=== PATIENT | female | born 1955 | race Caucasian/White ===

== ENCOUNTER 2016-10-23 07:14 | Emergency (ER) | payer BC ==
[2016-10-23 07:44] VITALS: BP 151/71
--- NOTE | 2016-10-23 08:14 | UC ---
Truncal Trauma HPI - HPI Summary HPI Summary: right mid ribs pain x 4 days had chiropractor adjustment 4 days ago , sudden onset pain to her right mid ribs pain is 7 out of 10 , sharp , no radiation , increase pain with movement , touch and deep breathing improves with rest. - History Of Current Complaint Chief Complaint: UCGeneralIllness Stated Complaint: RIB PAIN Time Seen by Provider: 10/23/16 07:49 Hx Obtained From: Patient Onset/Duration: Sudden Onset, Lasting Days - 4, Still Present Severity Initially: Moderate Severity Currently: Moderate Mechanism Of Injury: Unknown - chiro adjustment Aggravating Factor(s): Movement, Deep Breathing Alleviating factor(s): Rest Associated Signs And Symptoms: Negative: SOB, Chest Pain, Cough, Hematuria, Abdominal Pain, Fever, Nausea, Vomiting - Allergies/Home Medications Allergies/Adverse Reactions: Allergies Allergy/AdvReac Type Severity Reaction Status Date / Time No Known Allergies Allergy Verified 10/23/16 07:21 PMH/Surg Hx/FS Hx/Imm Hx Cardiovascular History: Hypertension - Surgical History Surgical History: None - Family History Known Family History: Negative: Diabetes - Social History Alcohol Use: Occasionally Substance Use Type: None Smoking Status (MU): Never Smoked Tobacco Review of Systems Constitutional: Negative Skin: Negative Eyes: Negative ENT: Negative Respiratory: Negative All Other Systems Reviewed And Are Negative: Yes Physical Exam Triage Information Reviewed: Yes Appearance: Well-Appearing, No Pain Distress, Well-Nourished Vital Signs: Initial Vital Signs Temp 99.0 F 10/23/16 07:21 Pulse 65 10/23/16 07:21 Resp 16 10/23/16 07:21 BP 151/71 10/23/16 07:21 Pulse Ox 100 10/23/16 07:21 Vital Signs Reviewed: Yes Eyes: Positive: Conjunctiva Clear ENT: Positive: Normal ENT inspection, Hearing grossly normal, Pharynx normal Neck: Positive: Supple Respiratory: Positive: Chest non-tender, Lungs clear, Normal breath sounds, No respiratory distress, No accessory muscle use, Other: - tenderness right 6/7/8 lateral ribs. Negative: Accessory muscle use, Crackles, Rhonchi Cardiovascular: Positive: RRR, No Murmur, Pulses Normal Abdomen Description: Positive: Nontender, No Organomegaly, Soft. Negative: CVA Tenderness (R), CVA Tenderness (L) Bowel Sounds: Positive: Present Musculoskeletal Exam: Normal Musculoskeletal: Positive: Strength Intact, ROM Intact, No Edema Neurological: Positive: Alert Skin Exam: Normal Truncal Trauma Course/Dx - Differential Dx/Diagnosis Provider Diagnoses: strain right ribs Discharge - Discharge Plan Condition: Stable Disposition: HOME Prescriptions: Cyclobenzaprine TAB* [Flexeril 10 MG TAB*] 10 mg PO BID #20 tab Naproxen 500 mg PO BID #20 tab Patient Education Materials: Rib Contusion (ED) Referrals: Yuusf Chandler MD [Primary Care Provider] - 7 Days
--- NOTE | 2016-10-23 09:04 | RAD ---
INDICATION: Pain beneath the right breast 3 days after chiropractic appointment COMPARISON: None. TECHNIQUE: 3 views of the right ribs were obtained. FINDINGS: No fracture or significant focal osseous abnormality is seen. No pneumothorax is apparent. Limited views demonstrate grossly clear lungs. IMPRESSION: No radiographically apparent displaced rib fracture or pneumothorax. If the patient's symptoms persist, follow-up imaging is recommended.
== END 2016-10-23 08:40 | disposition home or self-care (01) ==
LOC: UCEAST 07:14
DX: S29.011A Strain of muscle and tendon of front wall of thorax, initial encounter (principal); X58.XXXA Exposure to other specified factors, initial encounter; Y93.9 Activity, unspecified; Y92.9 Unspecified place or not applicable; I10 Essential (primary) hypertension
CPT/HCPCS: 99212; G0463

== ENCOUNTER 2018-02-16 08:45 | Emergency (ER) | payer BC ==
[2018-02-16 09:01] VITALS: BP 137/80
--- NOTE | 2018-02-16 10:13 | UC ---
Skin Complaint HPI - HPI Summary HPI Summary: Onset of redness and discomfort left lower leg 2 days ago. No fever or drainage from the lesion. Patient wonders if there was a bug bite there initially. - History of Current Complaint Chief Complaint: UCSkin Time Seen by Provider: 02/16/18 09:58 Stated Complaint: SKIN COMPLAINT Hx Obtained From: Patient Onset/Duration: Gradual Onset, Lasting Days, Still Present Timing: Constant Onset Severity: Moderate Current Severity: Moderate Pain Intensity: 3 Pain Scale Used: 0-10 Numeric Location: Discrete - LLE Character: Pain, Redness Aggravating Factor(s): Touch Alleviating Factor(s): Nothing Associated Signs & Symptoms: Positive: Tenderness. Negative: Fever, Drainage, Bruising - Allergy/Home Medications Allergies/Adverse Reactions: Allergies Allergy/AdvReac Type Severity Reaction Status Date / Time No Known Allergies Allergy Verified 02/16/18 09:01 Home Medications: Home Medications Fluconazole 100 MG TAB* [Diflucan 100 MG TAB*] 100 mg PO DAILY 02/16/18 [ History Confirmed 02/16/18] Review of Systems Constitutional: Negative Skin: Rash Respiratory: Negative Cardiovascular: Negative Gastrointestinal: Negative All Other Systems Reviewed And Are Negative: Yes PMH/Surg Hx/FS Hx/Imm Hx Cardiovascular History: Hypertension - Surgical History Surgical History: None - Family History Known Family History: Negative: Hypertension, Diabetes - Social History Alcohol Use: Daily Alcohol Amount: few glasses of wine Substance Use Type: None Smoking Status (MU): Never Smoked Tobacco Physical Exam Triage Information Reviewed: Yes Appearance: Well-Appearing, No Pain Distress, Well-Nourished Vital Signs: Initial Vital Signs Temp 98 F 02/16/18 08:56 Pulse 72 02/16/18 08:56 Resp 16 02/16/18 08:56 BP 137/80 02/16/18 08:56 Pulse Ox 97 02/16/18 08:56 Vital Signs Reviewed: Yes Eyes: Positive: Conjunctiva Clear ENT: Positive: Hearing grossly normal Neck: Positive: Supple Respiratory: Positive: No respiratory distress, No accessory muscle use Cardiovascular: Positive: Pulses Normal Abdomen Description: Positive: Soft Musculoskeletal: Positive: No Edema Neurological: Positive: Alert Psychological: Positive: Age Appropriate Behavior Skin: Positive: Other - 6CM AREA OF ERYTHEMA LEFT LOWER LEG POSTEROMEDIALLY WITH CENTRALLY LOCATED RAISED, FIRM PAPULE. TENDER. NO DRAINAGE. Course/Dx - Diagnoses Provider Diagnoses: CELLULITIS LEFT LOWER LEG Discharge - Sign-Out/Discharge Documenting (check all that apply): Patient Departure All imaging exams completed and their final reports reviewed: No Studies - Discharge Plan Condition: Stable Disposition: HOME Prescriptions: Cephalexin CAP* [Keflex 500 CAP*] 1,000 mg PO BID #28 cap Patient Education Materials: Cellulitis (ED) Referrals: Yusuf Chandler MD [Primary Care Provider] - If Needed Additional Instructions: TAKE THE ANTIBIOTICS FOR THE FULL COURSE. SEEK FOLLOW-UP IF YOU DEVELOP CONTINUED SPREADING REDNESS OF THE SKIN, PERSISTENT PURULENT DRAINAGE, FEVER, INCREASED PAIN OR ANY OTHER CONCERNING SYMPTOMS. - Billing Disposition and Condition Condition: STABLE Disposition: Home
== END 2018-02-16 10:21 | disposition home or self-care (01) ==
LOC: UCEAST 08:45
DX: L03.116 Cellulitis of left lower limb (principal)
CPT/HCPCS: 99212; G0463

== ENCOUNTER 2018-04-11 07:10 | Emergency (ER) | payer BC ==
[2018-04-11 07:23] VITALS: BP 153/115
--- NOTE | 2018-04-11 07:52 | UC ---
Respiratory Complaint HPI - HPI Summary HPI Summary: This is a 63 year old female with a chief complaint of cough beginning 5 days ago. Recently returned from [place]. PAIN INTENSITY NOW: mild around ribs COURSE: continues for 5 days QUALITY: ache LOCATION: outer thorax bilateral MADE WORSE BY: cough RELIEVED BY: head MD Note: vss; 153/115 not taking HTN meds; 99.8 is temp; pulse ox=98; recheck right: 164/98; left: 158/94. Nurses note: pt started with a cough last monday. pt was on a trip and there was a friend that had a cough and a head cold that she ate dinner with a lot. monday night it got worse.pt began to wheeze on monday. - History of Current Complaint Chief Complaint: UCRespiratory Stated Complaint: COUGH RESP ISSUE Time Seen by Provider: 04/11/18 07:21 Pain Intensity: 8 - Allergies/Home Medications Allergies/Adverse Reactions: Allergies Allergy/AdvReac Type Severity Reaction Status Date / Time No Known Allergies Allergy Verified 02/16/18 09:01 Home Medications: Home Medications Dm/Acetaminophen/Doxylamine [Vicks Nyquil Cold-Flu Liquid] 1 liq PO 04/11/18 [ History] PMH/Surg Hx/FS Hx/Imm Hx - Additional Past Medical History Additional PMH: VISIT HISTORY: non contributory MEDICATIONS: not on anti hypertensive medication CHRONIC CONDITIONS: non contributory Family history significant for: -cardiovascular disease: hypertension -DM SMOKING: neg ALCOHOL: weekly 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, 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 Previously Healthy: Yes - Surgical History Surgical History: None - Family History Known Family History: Negative: Hypertension, Diabetes - Social History Alcohol Use: Weekly Alcohol Amount: few glasses of wine Substance Use Type: None Smoking Status (MU): Never Smoked Tobacco Review of Systems All Other Systems Reviewed And Are Negative: Yes Constitutional: Positive: Negative Skin: Positive: Negative Eyes: Positive: Negative ENT: Positive: Negative Respiratory: Positive: Shortness Of Breath - wheezing, Cough - non productive Cardiovascular: Positive: Negative Gastrointestinal: Positive: Negative Genitourinary: Positive: Negative Motor: Positive: Negative Neurovascular: Positive: Negative Musculoskeletal: Positive: Negative Neurological: Positive: Negative Psychological: Positive: Negative Is Patient Immunocompromised?: No Physical Exam - Summary Physical Exam Summary: Appearance: The patient is coughing; mild distress when coughs, and is well- nourished. Eyes: Conjunctiva are clear. Pupils are equal and reactive to light and accommodation. Extra ocular muscle movement is intact. ENT: The hearing is grossly normal, the pharynx is normal, and the TMs are normal. There is no muffled or hoarse voice. No stridor. Neck: The neck is supple and there is no lymphadenopathy. Respiratory: The chest is nontender to palpation and without crepitus. The lungs reveal bilateral rhonchi with extended expiratory phase and some rhonchi. There is no respiratory distress. No rales. Cardiovascular: Heart sounds reveal a regular rate and rhythm. There are no clicks, rubs or murmurs. There are no carotid bruits or thrills. Circulation is grossly intact. Abdomen: The abdomen is soft and nontender. There is no organomegaly. Bowel sounds are present and within normal limits. No point tenderness at McBurneys point. Musculoskeletal: Strength is intact. The patient moves all extremities. Neurological: The patient is alert. Motor and sensory are examination grossly intact. Speech is normal. Psychological: The patient displays age appropriate behavior Skin: Negative for rashes. Triage Information Reviewed: Yes Vital Signs: Initial Vital Signs Temp 99.8 F 04/11/18 07:18 Pulse 93 04/11/18 07:18 Resp 18 04/11/18 07:18 BP 153/115 04/11/18 07:18 Pulse Ox 98 04/11/18 07:18 Diagnostic Evaluation - Laboratory O2 Sat by Pulse Oximetry: 98 Respiratory Course/Dx - Course Course Of Treatment: 63 yo female with 5 day hx of non productive, spasmodic cough. No fever. Chest discomfort with cough. Physical examination reveals rhonchi and extended expiratory phase. My diagnosis is bronchitis with bronchospasm. She has also had recent travel to [place]. We'll start her on Zithromax as well as albuterol, spacer, and dexamethasone. A primary concern is her blood pressure that was rechecked bilaterally and was elevated. She knows to recheck this within a week with her doctor. She is not on antihypertensive medications. MEDICATIONS REVIEWED: Medications have been included in the original chart and reviewed. HTN NOTED: Hypertensive BP reading of X; follow up with PCP within 4 weeks to recheck blood pressure has been recommended to patient. Patient voices understanding. HTN: Hypertensive BP reading (>=140/90); patient referred to PCP within 1 day-1 week for follow- up. Patient voices understanding. - Differential Dx/Diagnosis Differential Diagnosis/HQI/PQRI: Asthma, Bronchitis, Lower Resp Infection, Other - HYPERTENSION Provider Diagnosis: Bronchospasm with bronchitis, acute Discharge - Sign-Out/Discharge Documenting (check all that apply): Patient Departure All imaging exams completed and their final reports reviewed: No Studies - Discharge Plan Condition: Stable Disposition: HOME Prescriptions: Albuterol HFA INHALER* [Ventolin HFA Inhaler*] 1 - 2 puff INH Q4H PRN #1 mdi MDD 8 PRN Reason: Shortness Of Breath Azithromycin TAB* [Zithromax TAB*] 250 mg PO DAILY #6 tab Dexamethasone TAB* [Decadron TAB*] 4 mg PO DAILY #4 tab MDD 2 Inhaler, Assist Devices [Aerochamber Mv] 1 mis XX Q6HR #1 mis MDD 8 Patient Education Materials: Acute Bronchitis (ED), Bronchospasm (ED) Referrals: Yusuf Chandler MD [Primary Care Provider] - Additional Instructions: WE DISCUSSED: PLEASE SEEK CARE AT THE EMERGENCY DEPARTMENT IF SYMPTOMS WORSEN OR IF NEW SYMPTOMS DEVELOP. FOLLOW UP WITH YOUR PRIMARY CARE PHYSICIAN IF CONDITION CONTINUES BEYOND 3 DAYS WITHOUT IMPROVEMENT. YOUR DIAGNOSIS IS: bronchitis with bronchospasm after recent travel to [place] YOUR PRESCRIPTION RECOMMENDATION IS: z judith; albuterol and spacer; dexamethasone OTHER INSTRUCTIONS: Hypertension Discharge Instructions: Your blood pressure reading today was 153/115, indicating HYPERTENSION. Follow- up with your primary care provider within 1 week for blood pressure check and appropriate recommendations and treatment, as needed. FOR PAIN AND/OR SLEEP: For pain: Ibuprofen (Motrin and other brand names) 400-600mg PLUS acetaminophen (Tylenol and other brand names) 500mg - 1000mg every 8 hours. Maximum is 3 doses a day. If this dosage is required for more than 5 days, you should re-check with your doctor. The combination of these two over-the- counter medications can be more effective than each one taken alone. Please check with the pharmacist if you have questions about your allergies to these medications. To help you sleep: If you feel as if you want to calm down and get sleepy, over the counter diphenhydramine (Benadryl and other brand names), 25 mg up to every 8 hours may be useful. Please check with the pharmacist if you have questions about your allergies to these medications. - Billing Disposition and Condition Condition: STABLE Disposition: Home
== END 2018-04-11 08:24 | disposition home or self-care (01) ==
LOC: UCEAST 07:10
DX: J20.9 Acute bronchitis, unspecified (principal)
CPT/HCPCS: 99212; G0463